=== PATIENT | female | born 1930 | race Caucasian/White ===

== ENCOUNTER 2017-04-04 22:06 | Inpatient (IN) | payer OTHER, MEDICARE ==
[~2017-04-04] VITALS: Ht 154.9 cm; Wt 76.4 kg
[~2017-04-04 22:06] MED LIST: Aspirin E.C. PO; CITRACAL PETITES PO; Cardura PO; Ceftin PO; Coreg PO; Coumadin,Jantoven PO; Cozaar PO; HYGROTON25 MG PO; Humibid LA,Mucinex PO; K-Dur PO; KEFLEX500 MG PO; Lovenox SC; Norvasc PO; Theragran PO; ZOFRAN ODT4 MG PO; Zestril,Prinivil PO; Zocor PO; Zoloft PO
[2017-04-04 23:21] LABS: HEMATOCRIT 26.3 % (36.0-46.0); MCH 30.4 PG (29.0-34.0); MCHC 36.5 G/DL (30.0-36.0); MCV 83.2 FL (83-99); MEAN PLAT.VOLUME 9.3 uM^3 (9.5-12.4); PLATELET COUNT 169 K/uL (156-360); RBC DIS.WIDTH-CV 12.8 % (11.8-14.6); RBC DIS.WIDTH-SD 39.2 % (39-53); RED BLOOD COUNT 3.16 M/uL (3.80-5.20); WHITE BLOOD COUNT 11.9 K/uL (4.1-10.2)
[2017-04-04 23:30] LABS: PTT 40.9 SEC (25-37)
[2017-04-04 23:33] LABS: CHLORIDE 84 mEq/L (99-109); POTASSIUM 2.6 mEq/L (3.7-5.4)
[2017-04-04 23:34] LABS: PROTHROMBIN TIME 64.6 SEC (10.2-12.9)
[2017-04-04 23:35] LABS: GLUCOSE 168 mg/dL (70-99)
[2017-04-04 23:36] LABS: ANION GAP 14 MEQ/L (2-14)
[2017-04-04 23:39] LABS: GFR ESTIMATE (CALCULATED) 33 mL/min/; UREA NITROGEN (BUN) 45 mg/dL (9-23)
[2017-04-04 23:42] LABS: SODIUM 121 mEq/L (136-147)
[2017-04-04 23:46] LABS: TROP-I INTERPRETATION POSITIVE; TROPONIN-I 0.91 ng/mL (0.0-0.30)
[2017-04-04 23:56] LABS: BASE EXCESS -0.9 mEq/L (-3 to +3); BICARBONATE 23.4 mEq/L (22-26); CARBOXY HGB 0.2 % (0-5); COMMENTS - BLOOD GASES C+; DEVICE VENT; FI02 100 %; MECHANICAL RATE 14 resp/min; METHEMOGLOBIN 1.1 % (0-1.5); MODE AC; PCO2 36 mm Hg (35-45); PO2 519 mm Hg (80-100); SITE RR; TIDAL VOLUME 400 ML; pH 7.42 (7.35-7.45)
[2017-04-04 23:58] LABS: INTER. NORMALIZED RATIO 5.5
[2017-04-04 23:59] LABS: PEEP 5 CM/H20; TOTAL RESP RATE 15 resp/min
[2017-04-05 04:33] VITALS: BP 190/73
[2017-04-05 08:59] VITALS: BP 148/63
[2017-04-06 06:21] LABS: HEMATOCRIT 23.5 % (36.0-46.0); MCH 29.9 PG (29.0-34.0); MCHC 34.5 G/DL (30.0-36.0); MCV 86.7 FL (83-99); MEAN PLAT.VOLUME 9.8 uM^3 (9.5-12.4); PLATELET COUNT 169 K/uL (156-360); RBC DIS.WIDTH-CV 13.7 % (11.8-14.6); RBC DIS.WIDTH-SD 42.5 % (39-53); RED BLOOD COUNT 2.71 M/uL (3.80-5.20); WHITE BLOOD COUNT 9.4 K/uL (4.1-10.2)
[2017-04-06 07:10] LABS: ANION GAP 11 MEQ/L (2-14); CHLORIDE 89 MEQ/L (99-109); GFR ESTIMATE (CALCULATED) 19 mL/min/; POTASSIUM 2.5 MEQ/L (3.7-5.4); SAMPLE HEMOLYSIS CHECK 0; SAMPLE ICTERIC CHECK 0; SAMPLE LIPEMIA CHECK 0; SODIUM 124 MEQ/L (136-147); UREA NITROGEN (BUN) 45 mg/dL (9-23)
[2017-04-06 07:31] LABS: GLUCOSE 70 mg/dL (70-99)
[2017-04-06 08:11] VITALS: BP 142/51
[2017-04-06 14:21] VITALS: BP 0/0
== END 2017-04-06 15:30 | DRG 84 ==
LOC: EME 22:06 → EDOF 04-05 00:12 → 5SOUTH 04-05 00:12 → EDOF 04-05 02:30 → 5SOUTH 04-05 04:10 → 5EAST 04-06 13:59
PROVIDERS: Emergency Medicine; Internal Medicine Pulmonary Disease
DX: S06.5X9A Traumatic subdural hemorrhage with loss of consciousness of unspecified duration, initial encounter (principal); R40.20 Unspecified coma; I48.91 Unspecified atrial fibrillation; E11.40 Type 2 diabetes mellitus with diabetic neuropathy, unspecified; W19.XXXA Unspecified fall, initial encounter; Y92.009 Unspecified place in unspecified non-institutional (private) residence as the place of occurrence of the external cause; Z51.5 Encounter for palliative care; I10 Essential (primary) hypertension; E78.5 Hyperlipidemia, unspecified; I73.9 Peripheral vascular disease, unspecified; M81.0 Age-related osteoporosis without current pathological fracture; Z79.01 Long term (current) use of anticoagulants; Z87.891 Personal history of nicotine dependence
CPT/HCPCS: 36600; 70450; 71010; 80048; 82803; 84484; 85027; 85610; 85730; 87086; 94002; 99281; 99285; C9132; J0330; J2060; J2270; J2704; J3430; J7050

== ENCOUNTER 2017-04-06 15:43 | Inpatient (IN) | payer OTHER ==
[2017-04-09 16:27] VITALS: BP 169/76
[2017-04-10] MEDS ORDERED: HYOSCYAMINE0.125 MG SL (13:51)
[2017-04-10] MEDS ORDERED: HALOPERIDOL2 MG/1 ML PO (13:51)
[2017-04-10] MEDS ORDERED: FENTANYL1 EAC5 TD (13:51)
[2017-04-10] MEDS ORDERED: MORPHINE CON20 MG/M1 SL (13:51)
[2017-04-10] MEDS ORDERED: ACETAMINOPHEN650 M4 PR (13:51)
[2017-04-10] MEDS ORDERED: ATIVAN INTE2 MG/1 ML PO (13:52)
== END 2017-04-10 23:20 | DRG 949 ==
LOC: DELPENDDIS → 5EAST 15:43 → ENPENDDIS 04-10 → 5EAST 04-10 23:20
DX: S06.5X9D Traumatic subdural hemorrhage with loss of consciousness of unspecified duration, subsequent encounter (principal); G93.5 Compression of brain; Z51.5 Encounter for palliative care; Z66 Do not resuscitate; R45.1 Restlessness and agitation; E11.40 Type 2 diabetes mellitus with diabetic neuropathy, unspecified; I10 Essential (primary) hypertension; E78.5 Hyperlipidemia, unspecified; E66.9 Obesity, unspecified; I48.91 Unspecified atrial fibrillation; M81.0 Age-related osteoporosis without current pathological fracture; I73.9 Peripheral vascular disease, unspecified; Z79.01 Long term (current) use of anticoagulants; Z87.891 Personal history of nicotine dependence
CPT/HCPCS: 87086; 94799; J2270